=== PATIENT | female | born 1970 | race African-American/Black ===

== ENCOUNTER 2017-09-14 19:08 | Emergency (ER) | payer MEDICAID ==
[~2017-09-14] VITALS: Ht 157.5 cm; Wt 107.5 kg
[2017-09-14 19:36] LABS: CULTURE INDICATED? YES; MICROSCOPIC INDICATED
[2017-09-14 19:43] LABS: MEAN CORPUSCULAR HGB CONC 33.1 g/dL (32.4-35.8); MEAN CORPUSCULAR VOLUME 90.7 fL (80-100); MEAN PLATELET VOLUME 8.5 fL (7.4-10.4); PLATELET COUNT 225 x10^3/uL (130-400); RED BLOOD COUNT 3.93 x10^6/uL (3.82-5.3); RED CELL DISTRIBUTION WIDTH 14.9 % (9.6-15.2)
[2017-09-14 19:55] LABS: ALANINE AMINOTRANSFERASE 24 U/L (12-78); ALBUMIN 3.2 g/dL (3.4-5.0); ANION GAP 6 mmol/L (5-15); CALCIUM 8.6 mg/dL (8.5-10.1); CHLORIDE 109 mmol/L (98-107); CREATININE 0.81 mg/dL (0.55-1.02)
[2017-09-14 19:59] LABS: ALKALINE PHOSPHATASE 155 U/L (45-117); BILIRUBIN,TOTAL 0.1 mg/dL (0.2-1.0); TOTAL PROTEIN 7.2 g/dL (6.4-8.2)
[2017-09-14 20:00] LABS: BASOPHILS # (AUTO) 0.02 x10^3/uL (0-0.1); BASOPHILS % (AUTO) 0 % (0-1); EOSINOPHILS # (AUTO) 0.08 x10^3/uL (0-0.4); EOSINOPHILS % (AUTO) 2 % (1-7); LYMPHOCYTES # (AUTO) 1.72 x10^3/uL (1-3.4); LYMPHOCYTES % (AUTO) 35 % (22-44); MD SCAN; MONOCYTES # (AUTO) 0.46 x10^3/uL (0.2-0.8); MONOCYTES % (AUTO) 9 % (2-9); NEUTROPHILS # (AUTO) 2.65 x10^3/uL (1.8-6.8); NEUTROPHILS % (AUTO) 54 % (42-75)
[2017-09-14] MEDS ORDERED: MAALOX/HYOSCYAMINE/LIDOCAINE 45 ML BTL PO ONE (20:00)
[2017-09-14] MEDS ORDERED: MAALOX/HYOSCYAMINE/LIDOCAINE 45 ML BTL ONE (20:06)
[2017-09-14 21:30] VITALS: BP 126/70
== END 2017-09-14 21:32 | disposition home or self-care (01) ==
LOC: ED 21:20
DX: K29.00 Acute gastritis without bleeding (principal)
CPT/HCPCS: 36415; 76700; 80053; 81001; 83690; 84703; 85025; 87086; 99285

== ENCOUNTER 2018-03-28 09:26 | Emergency (ER) | payer MEDICAID ==
[~2018-03-28] VITALS: Ht 157.5 cm; Wt 109.0 kg
[2018-03-28 09:27] VITALS: BP 148/97
[2018-03-28 11:09] LABS: MEAN CORPUSCULAR HEMOGLOBIN 30.3 pg (27.0-34.8); MEAN CORPUSCULAR HGB CONC 33.1 g/dL (32.4-35.8); MEAN CORPUSCULAR VOLUME 91.5 fL (80-100); MEAN PLATELET VOLUME 8.4 fL (7.4-10.4); PLATELET COUNT 204 x10^3/uL (130-400); RED BLOOD COUNT 3.55 x10^6/uL (3.82-5.3); RED CELL DISTRIBUTION WIDTH 16.6 % (9.6-15.2)
[2018-03-28 11:25] LABS: ALANINE AMINOTRANSFERASE 30 U/L (12-78); ALBUMIN 3.2 g/dL (3.4-5.0); ANION GAP 9 mmol/L (5-15); CALCIUM 7.7 mg/dL (8.5-10.1); CHLORIDE 109 mmol/L (98-107); CREATININE 0.76 mg/dL (0.55-1.02)
[2018-03-28 11:27] LABS: BASOPHILS # (AUTO) 0.05 x10^3/uL (0-0.1); BASOPHILS % (AUTO) 1 % (0-1); EOSINOPHILS # (AUTO) 0.07 x10^3/uL (0-0.4); EOSINOPHILS % (AUTO) 1 % (1-7); LYMPHOCYTES # (AUTO) 1.55 x10^3/uL (1-3.4); LYMPHOCYTES % (AUTO) 30 % (22-44); MD NO; MONOCYTES # (AUTO) 0.45 x10^3/uL (0.2-0.8); MONOCYTES % (AUTO) 9 % (2-9); NEUTROPHILS # (AUTO) 3.06 x10^3/uL (1.8-6.8); NEUTROPHILS % (AUTO) 59 % (42-75)
[2018-03-28 11:29] LABS: ALKALINE PHOSPHATASE 159 U/L (45-117); BILIRUBIN,TOTAL 0.1 mg/dL (0.2-1.0); TOTAL PROTEIN 7.2 g/dL (6.4-8.2)
[2018-03-28] MEDS ORDERED: FUROSEMIDE 40 MG TABLET PO ONE (12:30)
[2018-03-28] MEDS ORDERED: FUROSEMIDE 40 MG TABLET ONE (12:41)
== END 2018-03-28 12:48 | disposition home or self-care (01) ==
LOC: ED 10:00
DX: G89.29 Other chronic pain (principal); M79.662 Pain in left lower leg; M79.661 Pain in right lower leg; M25.572 Pain in left ankle and joints of left foot; M25.571 Pain in right ankle and joints of right foot; M79.672 Pain in left foot; M79.671 Pain in right foot; R60.0 Localized edema
CPT/HCPCS: 36415; 71045; 80053; 83880; 85025; 93005; 93970; 99285

== ENCOUNTER 2018-07-05 21:54 | Inpatient (IN) | payer MEDICAID ==
[~2018-07-05] VITALS: Ht 157.5 cm; Wt 109.8 kg
--- NOTE | 2018-07-05 22:00 | NUR ---
REPORT FROM ELDA OATES. TECH AT BEDSIDE PLACING IV. BP/SPO2/ECG MONITORING IN PLACE. SINUS TACH ON MONITOR.
--- NOTE | 2018-07-05 22:07 | NUR ---
BIB [facility]. C/O cough x 5 days with white sputum. Left lateral chest pain. EKG done. Placed on NIBP, pulse ox and monitor worker. Family at bedside. Will continue to monitor.
--- NOTE | 2018-07-05 23:05 | NUR ---
PT REPORTS L AXIAL CP WITH COUGH X SEVERAL DAYS. INCREASE IN PAIN WITH DEEP BREATHING AND COUGHING. +SUBJECTIVE FEVER AND INTERMITTENT BLE EDEMA. DENIES PRODUCTIVE COUGH/RECENT TRAVEL OR HX OF DVT/PE. RR 30'S, SHALLOW. SPO2 >90% ON RA; PT SPEAKING IN 3-5 WORD SENTENCES. NO TRIPODING OR ACCESSORY MUSCLE USE NOTED. SKIN WARM/DRY. PT AFEBRILE AT PRESENT. PT CALM AND COOPERATIVE WITH CARE. ERP AWARE OF HR/BP. NO IVF AT THIS TIME.
[2018-07-05 23:19] LABS: MEAN CORPUSCULAR HEMOGLOBIN 29.6 pg (27.0-34.8); MEAN CORPUSCULAR HGB CONC 32.3 g/dL (32.4-35.8); MEAN CORPUSCULAR VOLUME 91.6 fL (80-100); MEAN PLATELET VOLUME 9.6 fL (7.4-10.4); PLATELET COUNT 222 x10^3/uL (130-400); RED BLOOD COUNT 3.76 x10^6/uL (3.82-5.3)
[2018-07-05] MEDS ORDERED: CEFTRIAXONE PMX 1GM/50ML 50 ML ONE (23:25)
[2018-07-05] MEDS ORDERED: MORPHINE SULFATE 4 MG/ML, 1ML ONE (23:25)
[2018-07-05] MEDS ORDERED: KETOROLAC 30 MG/1 ML ONE (23:25)
[2018-07-05] MEDS ORDERED: AZITHROMYCIN 500 MG in SODIUM CHLORIDE 0.9% 250 ML IVPB ONE (23:30)
[2018-07-05] MEDS ORDERED: CEFTRIAXONE 1,000 MG in SODIUM CHLORIDE 0.9% 50 ML IVPB ONE (23:30)
[2018-07-05] MEDS ORDERED: SODIUM CHLORIDE FLUSH 10ML SYR IVF ONE (23:30)
[2018-07-05] MEDS ORDERED: SODIUM CHLORIDE 0.9% 1,000ML IVBOLUS ONE (23:30)
[2018-07-05] MEDS ORDERED: KETOROLAC 30 MG/1 ML IVPush ONE (23:30)
[2018-07-05 23:31] LABS: MD YES
[2018-07-05] MEDS: MORPHINE SULFATE 4 MG/ML, 1ML IVPush PRN (23:31)
[2018-07-05 23:33] LABS: BAND#(MANUAL) 1.24 x10^3/uL; BANDS%(MANUAL) 6 % (0-7); EOS#(MANUAL) 0.21 x10^3/uL (0.0-0.4); EOS% (MANUAL) 1 % (1-7); LYMPH#(MANUAL) 2.06 x10^3/uL (1-3.4); LYMPHS% (MANUAL) 10 % (22-44); MONOS#(MANUAL) 0.62 x10^3/uL (0.3-2.7); MONOS% (MANUAL) 3 % (2-9)
[2018-07-05 23:35] LABS: MYELOCYTES# (MANUAL) 0.21 x10^3/uL (0-0); MYELOCYTES% (MANUAL) 1 % (0-0); NRBC % (MANUAL) 2 % (0-1); SEG#(MANUAL) 16.27 x10^3/uL (1.8-6.8); SEGS% (MANUAL) 79 % (42-75)
[2018-07-05 23:37] LABS: <PLATELET ESTIMATE> ADEQUATE; <RBC MORPHOLOGY> NORMAL; LARGE PLATELETS 1+; TOXIC GRAN 1+
--- NOTE | 2018-07-06 00:02 | NUR ---
CT PENDING NORMAL CREATINE.
--- NOTE | 2018-07-06 00:05 | NUR ---
PT REPORTS LITTLE CHANGE IN PAIN WITH MEDICATIONS. PT, HOWEVER, APPEARS MARKEDLY MORE COMFORTABLE. ABX INITIATED. BC X2 DRAWN PRIOR TO ADMIN.
[2018-07-06 00:25] LABS: ALANINE AMINOTRANSFERASE 25 U/L (12-78); ALBUMIN 1.7 g/dL (3.4-5.0); ANION GAP 6 mmol/L (5-15); CALCIUM 7.9 mg/dL (8.5-10.1); CHLORIDE 106 mmol/L (98-107)
[2018-07-06 00:27] LABS: ALKALINE PHOSPHATASE 137 U/L (45-117); BILIRUBIN,TOTAL 0.4 mg/dL (0.2-1.0); TOTAL PROTEIN 6.5 g/dL (6.4-8.2)
[2018-07-06 00:37] LABS: TROPONIN I < 0.015 ng/mL (0.000-0.045)
--- NOTE | 2018-07-06 00:39 | NUR ---
NO S/S OF ABX RXN NOTED. PT TO CT AT THIS TIME. DELAY IN SECOND ABX ADMIN
[2018-07-06] MEDS ORDERED: OMNIPAQUE 350 MG/ML, 100ML BOTTLE ONE (01:04)
--- NOTE | 2018-07-06 01:15 | NUR ---
PT REMAINS HYPOTENSIVE, SBP 90'S. DENIES DIZZINESS/WEAKNESS/NAUSEA. PWD. ERP AWARE. VERBAL ORDER RECEIVED FOR SECOND LITER NS BOLUS. IVF HUNG AT THIS TIME. ABX CONTINUES TO INFUSE. NO S/S OF ABX RXN NOTED. FAMILY AT BEDSIDE. AWAITING ADMIT
[2018-07-06] MEDS ORDERED: POTASSIUM CHLORIDE 10% 40 MEQ/30 ML UDC PO ONE (01:30)
--- NOTE | 2018-07-06 02:11 | NUR ---
BP STABLE ALTHOUGH REMAINS HYPOTENSIVE. PT DENIES CP/SOB/DIZZINESS/WEAKNESS.
[2018-07-06] MEDS ORDERED: CEFTRIAXONE PMX 1GM/50ML 50 ML IV ONE (03:30)
[2018-07-06] MEDS ORDERED: CEFTRIAXONE PMX 2GM/50ML 50 ML IV SCH (03:30)
[2018-07-06] MEDS ORDERED: POTASSIUM CHLORIDE 40 MEQ in SODIUM CHLORIDE 0.9% 500 ML IV ONE (04:00)
[2018-07-06] MEDS ORDERED: LABETALOL 5MG/ML, 20ML IVPush PRN (04:00)
[2018-07-06] MEDS ORDERED: hydrALAzine 20 MG/ML, 1ML IVPush PRN (04:00)
[2018-07-06] MEDS ORDERED: ONDANSETRON ODT 4 MG PO PRN (04:00)
[2018-07-06] MEDS ORDERED: ONDANSETRON 2MG/ML, 2ML IVPush PRN (04:00)
[2018-07-06] MEDS ORDERED: BISACODYL 10 MG SUPP PR PRN (04:00)
[2018-07-06] MEDS ORDERED: DOCUSATE 100 MG CAPSULE PO PRN (04:00)
[2018-07-06] MEDS ORDERED: POLYETHYLENE GLYCOL 17 GM PACKET PO PRN (04:00)
[2018-07-06] MEDS ORDERED: ACETAMINOPHEN 325 MG TABLET PO PRN (04:00)
[2018-07-06] MEDS ORDERED: PROMETHAZINE 25 MG/ML, 1ML IM PRN (04:00)
[2018-07-06 04:17] LABS: FREE T4 (FREE THYROXINE) 1.68 ng/dL (0.76-1.46); THYROID STIMULATING HORMONE 1.22 mIU/L (0.358-3.740)
--- NOTE | 2018-07-06 04:21 | NUR ---
PT MOSTLY SLEEPY, EASILY ARROUSABLE TO VOICE. PT PROVIDED HOSPITAL BED. PT TO STANDING AT BEDSIDE WO DIFFICULTY, DENIES DIZZINESS/WEAKNESS/CP/SOB. SPO2/ECG MONITORING REMAINS IN PLACE. NSR ON MONITOR. SPO2 >90% ON RA. RR 20'S. PT REMAINS WARM/DRY.
[2018-07-06] MEDS ORDERED: ENOXAPARIN 40 MG/0.4 ML ONE (04:43)
[2018-07-06] MEDS: SODIUM CHLORIDE 0.9% 1,000 ML IV SCH ×3 (05:19→23:00)
[2018-07-06] MEDS: ENOXAPARIN 40 MG/0.4 ML SQ SCH (05:20)
[2018-07-06] MEDS: MORPHINE SULFATE 4 MG/ML, 1ML IVPush PRN (05:51)
--- NOTE | 2018-07-06 07:31 | NUR ---
RECEIVED REPORT FROM LUANN SCHROEDER. PT RESTING IN BED AT THIS TIME.
--- NOTE | 2018-07-06 08:30 | NUR ---
DR. BOGDAN SANTIAGO FOR LOW BLOOD PRESSURE 85/55.
--- NOTE | 2018-07-06 08:46 | NUR ---
PAGED DR. ADORNO, DR. MCFADDEN IS NOT ANSWERING PHONE OR CALLING BACK. CALLED AND LEFT A MESSAGE FOR DR. ADORNO AT [phone]
--- NOTE | 2018-07-06 08:50 | NUR ---
DR. ADORNO CALLED BACK. PER VERBAL ORDER OVER THE PHONE. PT TO HAVE 1 LITER NS WIDE OPE, AND 1 LITER AT 250ML/HR X 1 LITER AND THEN MAINTENANCE AT 150ML/HR
--- NOTE | 2018-07-06 09:00 | NUR ---
MEAL TRAY GIVEN TO PT
[2018-07-06] MEDS ORDERED: SODIUM CHLORIDE 0.9% 1,000ML IVBOLUS ONE (09:30)
--- NOTE | 2018-07-06 09:59 | NUR ---
BLOOD PRESSURE 96/50 AFTER 1ST LITER BOLUS INFUSED. 2ND LITER AT 250ML/HR STARTED.
[2018-07-06] MEDS ORDERED: SODIUM CHLORIDE 0.9% 1,000 ML IV ONE (10:00)
--- NOTE | 2018-07-06 10:02 | NUR ---
PT ATE ABOUT 75% MEAL. PT A&OX4.
[2018-07-06] MEDS ORDERED: ERGOCALCIFEROL 50,000 UNIT CAPSULE PO SCH (10:30)
--- NOTE | 2018-07-06 11:04 | NUR ---
PT DIAPHORETIC AND COOL WASH CLOTH GIVEN TO PT
--- NOTE | 2018-07-06 12:02 | NUR ---
REPORT GIVEN TO SUSHIL SCHROEDER.
--- NOTE | 2018-07-06 12:05 | NUR ---
RN AWARE OF HYPOTENSION. WILL TALKE WITH TECHNICIAN AUTOMATIC ON MEDICAL FLOOR IF PATIENT APROPRIATE FOR FLOOR.
[2018-07-06] MEDS: OXYcodone IR 5MG TABLET PO PRN ×2 (13:13→20:34)
[2018-07-06 13:27] VITALS: BP 92/64
[2018-07-06 16:08] VITALS: BP 92/64
[2018-07-06 19:44] LABS: MICROSCOPIC INDICATED
[2018-07-06 20:08] VITALS: BP 108/73
[2018-07-06] MEDS: AZITHROMYCIN 500 MG in SODIUM CHLORIDE 0.9% 250 ML IV SCH (23:05)
[2018-07-06] MEDS: morphine SULFATE 10 MG/ML, 1ML IVPush PRN (23:10)
[2018-07-07 00:52] VITALS: BP 101/68
[2018-07-07] MEDS: CEFTRIAXONE PMX 2GM/50ML 50 ML IV SCH (01:08)
[2018-07-07 05:43] LABS: MEAN CORPUSCULAR VOLUME 91.1 fL (80-100); MEAN PLATELET VOLUME 8.5 fL (7.4-10.4); PLATELET COUNT 225 x10^3/uL (130-400); RED BLOOD COUNT 3.18 x10^6/uL (3.82-5.3); RED CELL DISTRIBUTION WIDTH 16.4 % (9.6-15.2)
[2018-07-07 05:51] LABS: CHLORIDE 112 mmol/L (98-107)
[2018-07-07 05:57] LABS: ALANINE AMINOTRANSFERASE 44 U/L (12-78); ALBUMIN 1.7 g/dL (3.4-5.0); ALKALINE PHOSPHATASE 194 U/L (45-117); ANION GAP 5 mmol/L (5-15); BILIRUBIN,TOTAL 0.2 mg/dL (0.2-1.0); CHOL/HDL RATIO 11.3; CHOLESTEROL, TOTAL 135 mg/dL (140-239); CREATININE 0.52 mg/dL (0.55-1.02); HDL CHOL % 9 % (28-40); HDL CHOLESTEROL (DIRECT) 12 mg/dL (40-60); LDL CHOLESTEROL,CALCULATED 88 mg/dL (54-169); LDL/HDL RATIO 7.3 (0.5-3.0); TOTAL PROTEIN 6.9 g/dL (6.4-8.2); TRIGLYCERIDES 176 mg/dL (50-200); VLDL CHOLESTEROL 35 mg/dL (0-25)
[2018-07-07 06:01] LABS: MD YES
[2018-07-07 06:12] LABS: BANDS%(MANUAL) 1 % (0-7); EOS#(MANUAL) 0.31 x10^3/uL (0.0-0.4); EOS% (MANUAL) 3 % (1-7); LYMPH#(MANUAL) 3.16 x10^3/uL (1-3.4); LYMPHS% (MANUAL) 31 % (22-44); METAMYELOCYTES# (MANUAL) 0.31 x10^3/uL (0-0); METAMYELOCYTES% (MANUAL) 3 % (0-1); MONOS#(MANUAL) 0.71 x10^3/uL (0.3-2.7); MONOS% (MANUAL) 7 % (2-9); MYELOCYTES% (MANUAL) 1 % (0-0); NRBC % (MANUAL) 1 % (0-1); SEG#(MANUAL) 5.51 x10^3/uL (1.8-6.8); SEGS% (MANUAL) 54 % (42-75)
[2018-07-07 06:14] LABS: <PLATELET ESTIMATE> ADEQUATE; POLYCHROMASIA 1+; TOXIC GRAN 1+
[2018-07-07 06:21] LABS: <PLT MORPHOLOGY> NORMAL PLT MORPH
[2018-07-07 07:16] VITALS: BP 104/65
[2018-07-07] MEDS: ENOXAPARIN 40 MG/0.4 ML SQ SCH (08:12)
[2018-07-07] MEDS: OXYcodone IR 5MG TABLET PO PRN ×2 (08:21→20:09)
[2018-07-07] MEDS: GUAIFENESIN ER 600 MG TABLET PO SCH (13:00)
[2018-07-07 14:45] VITALS: BP 110/69
[2018-07-07 18:55] VITALS: BP 105/72
[2018-07-07] MEDS: AZITHROMYCIN 500 MG in SODIUM CHLORIDE 0.9% 250 ML IV SCH (23:25)
[2018-07-08 00:36] VITALS: BP 101/63
[2018-07-08] MEDS: GUAIFENESIN ER 600 MG TABLET PO SCH ×2 (01:29→08:49)
[2018-07-08] MEDS: CEFTRIAXONE PMX 2GM/50ML 50 ML IV SCH (01:33)
[2018-07-08 06:55] VITALS: BP 103/68
[2018-07-08] MEDS: morphine SULFATE 10 MG/ML, 1ML IVPush PRN ×2 (08:49→23:24)
[2018-07-08] MEDS: ENOXAPARIN 40 MG/0.4 ML SQ SCH (08:49)
[2018-07-08 13:52] VITALS: BP 110/72
[2018-07-08] MEDS: OXYcodone IR 5MG TABLET PO PRN ×2 (14:09→20:12)
[2018-07-08 19:25] VITALS: BP 104/71
[2018-07-08] MEDS: AZITHROMYCIN 500 MG in SODIUM CHLORIDE 0.9% 250 ML IV SCH (23:11)
[2018-07-09] MEDS: GUAIFENESIN ER 600 MG TABLET PO SCH ×2 (00:47→09:35)
[2018-07-09] MEDS: CEFTRIAXONE PMX 2GM/50ML 50 ML IV SCH (00:47)
[2018-07-09 01:26] VITALS: BP 106/70
[2018-07-09 06:30] LABS: MEAN CORPUSCULAR HEMOGLOBIN 29.8 pg (27.0-34.8); MEAN CORPUSCULAR HGB CONC 32.8 g/dL (32.4-35.8); MEAN CORPUSCULAR VOLUME 90.8 fL (80-100); MEAN PLATELET VOLUME 8.1 fL (7.4-10.4); PLATELET COUNT 307 x10^3/uL (130-400); RED BLOOD COUNT 3.27 x10^6/uL (3.82-5.3); RED CELL DISTRIBUTION WIDTH 16.5 % (9.6-15.2)
[2018-07-09 06:37] LABS: CHLORIDE 109 mmol/L (98-107)
[2018-07-09 06:43] VITALS: BP 98/64
[2018-07-09 06:49] LABS: ANION GAP 7 mmol/L (5-15); CALCIUM 8.3 mg/dL (8.5-10.1); CREATININE 0.57 mg/dL (0.55-1.02)
[2018-07-09 06:50] LABS: MD YES
[2018-07-09 06:52] LABS: BAND#(MANUAL) 0.16 x10^3/uL; BANDS%(MANUAL) 2 % (0-7); EOS#(MANUAL) 0.08 x10^3/uL (0.0-0.4); EOS% (MANUAL) 1 % (1-7); LYMPHS% (MANUAL) 20 % (22-44); METAMYELOCYTES# (MANUAL) 0.16 x10^3/uL (0-0); METAMYELOCYTES% (MANUAL) 2 % (0-1); MONOS#(MANUAL) 0.48 x10^3/uL (0.3-2.7); MONOS% (MANUAL) 6 % (2-9); NRBC % (MANUAL) 1 % (0-1); SEG#(MANUAL) 5.52 x10^3/uL (1.8-6.8); SEGS% (MANUAL) 69 % (42-75)
[2018-07-09 06:53] LABS: <PLATELET ESTIMATE> ADEQUATE; <PLT MORPHOLOGY> NORMAL PLT MORPH; ANISOCYTOSIS 1+; TOXIC GRAN 1+
[2018-07-09] MEDS: ENOXAPARIN 40 MG/0.4 ML SQ SCH (09:35)
[2018-07-09] MEDS: OXYcodone IR 5MG TABLET PO PRN ×3 (09:43→22:38)
[2018-07-09 12:13] VITALS: BP 95/66
[2018-07-09 20:01] VITALS: BP 99/65
[2018-07-09] MEDS: AZITHROMYCIN 500 MG in SODIUM CHLORIDE 0.9% 250 ML IV SCH (22:31)
[2018-07-10] MEDS: GUAIFENESIN ER 600 MG TABLET PO SCH ×2 (00:48→14:11)
[2018-07-10] MEDS: CEFTRIAXONE PMX 2GM/50ML 50 ML IV SCH (00:48)
[2018-07-10 00:53] VITALS: BP 93/62
[2018-07-10 05:42] LABS: BASOPHILS # (AUTO) 0.03 x10^3/uL (0-0.1); BASOPHILS % (AUTO) 0 % (0-1); EOSINOPHILS % (AUTO) 2 % (1-7); LYMPHOCYTES # (AUTO) 1.64 x10^3/uL (1-3.4); LYMPHOCYTES % (AUTO) 24 % (22-44); MD NO; MEAN CORPUSCULAR HEMOGLOBIN 30.5 pg (27.0-34.8); MEAN CORPUSCULAR HGB CONC 33.5 g/dL (32.4-35.8); MEAN CORPUSCULAR VOLUME 91.1 fL (80-100); MEAN PLATELET VOLUME 7.9 fL (7.4-10.4); MONOCYTES # (AUTO) 0.47 x10^3/uL (0.2-0.8); MONOCYTES % (AUTO) 7 % (2-9); NEUTROPHILS # (AUTO) 4.76 x10^3/uL (1.8-6.8); NEUTROPHILS % (AUTO) 68 % (42-75); PLATELET COUNT 344 x10^3/uL (130-400); RED BLOOD COUNT 3.07 x10^6/uL (3.82-5.3); RED CELL DISTRIBUTION WIDTH 16.5 % (9.6-15.2)
[2018-07-10 05:47] LABS: CHLORIDE 109 mmol/L (98-107)
[2018-07-10 05:51] LABS: ANION GAP 6 mmol/L (5-15); CALCIUM 8.5 mg/dL (8.5-10.1); CREATININE 0.61 mg/dL (0.55-1.02)
[2018-07-10 07:30] VITALS: BP 92/60
[2018-07-10] MEDS: OXYcodone IR 5MG TABLET PO PRN ×2 (08:08→14:11)
[2018-07-10] MEDS: ENOXAPARIN 40 MG/0.4 ML SQ SCH (08:08)
[2018-07-10] MEDS ORDERED: AZIT500T5 PO (11:16)
[2018-07-10] MEDS ORDERED: CEFD300C37 PO (11:16)
[2018-07-10 13:45] VITALS: BP 100/67
== END 2018-07-10 14:27 | disposition home or self-care (01) | DRG 871 ==
LOC: ED 07-06 00:13 → EDIP 07-06 01:16 → 3NE 07-06 12:28
PROVIDERS: ADMIT Internal Medicine; ATTEND Internal Medicine
DX: A41.9 Sepsis, unspecified organism (principal); E43 Unspecified severe protein-calorie malnutrition; J15.9 Unspecified bacterial pneumonia; J96.91 Respiratory failure, unspecified with hypoxia; Z68.41 Body mass index [BMI] 40.0-44.9, adult; D64.9 Anemia, unspecified; Z88.0 Allergy status to penicillin; E55.9 Vitamin D deficiency, unspecified; E87.6 Hypokalemia; F17.200 Nicotine dependence, unspecified, uncomplicated; Z83.3 Family history of diabetes mellitus
CPT/HCPCS: 36415; 71045; 71046; 71275; 80048; 80053; 80061; 81001; 82306; 82607; 82728; 83036; 83540; 83550; 83605; 83735; 83880; 84439; 84443; 84466; 84484; 85025; 87040; 87070; 87205; 87806; 93005; 99285; G0378; J0456; J0696; J1650; J1885; J3480; Q9967; G0475; J2270; J7030; J7040; J7050

== ENCOUNTER 2019-08-18 23:55 | Emergency (ER) | payer MEDICAID ==
[~2019-08-18] VITALS: Ht 157.5 cm; Wt 111.0 kg
[~2019-08-18 23:55] MED LIST: AZIT500T10 PO; CEFD300C37 PO
--- NOTE | 2019-08-19 00:16 | NUR ---
Pt presents to room with bilateral lower leg edema and redness to her left lower leg. Pt states she takes Lasix PRN for the edema and also states the current edema is baseline for her. Pt reports noticing the redness to her left lower leg yesterday. Pt describes the redness and itchy and painful. Pt denies fever with symptoms.
[2019-08-19] MEDS ORDERED: SODIUM CHLORIDE FLUSH 10ML SYR IVF ONE (00:30)
[2019-08-19] MEDS ORDERED: ONDANSETRON 2MG/ML, 2ML ONE (00:52)
[2019-08-19] MEDS ORDERED: MORPHINE SULFATE 4 MG/ML, 1ML ONE (00:53)
[2019-08-19 00:56] LABS: BASOPHILS % (AUTO) 0 % (0-1); EOSINOPHILS # (AUTO) 0.06 x10^3/uL (0-0.4); EOSINOPHILS % (AUTO) 1 % (1-7); LYMPHOCYTES # (AUTO) 1.25 x10^3/uL (1-3.4); LYMPHOCYTES % (AUTO) 26 % (22-44); MD NO; MEAN CORPUSCULAR HEMOGLOBIN 28.5 pg (27.0-34.8); MEAN CORPUSCULAR HGB CONC 32.3 g/dL (32.4-35.8); MEAN CORPUSCULAR VOLUME 88.3 fL (80-100); MEAN PLATELET VOLUME 8.9 fL (7.4-10.4); MONOCYTES # (AUTO) 0.26 x10^3/uL (0.2-0.8); MONOCYTES % (AUTO) 5 % (2-9); NEUTROPHILS % (AUTO) 68 % (42-75); PLATELET COUNT 209 x10^3/uL (130-400); RED BLOOD COUNT 3.63 x10^6/uL (3.82-5.3); RED CELL DISTRIBUTION WIDTH 18.2 % (9.6-15.2)
[2019-08-19] MEDS ORDERED: ONDANSETRON 2MG/ML, 2ML IVPush ONE (01:00)
[2019-08-19] MEDS ORDERED: MORPHINE SULFATE 4 MG/ML, 1ML IVPush PRN (01:00)
--- NOTE | 2019-08-19 01:07 | NUR ---
PATIENT GIVEN MEDICATIONS, VITAL SIGNS STABLE. NO NOTED ACUTE DISTRESS. PATIENT DENIES ANY FURTHER NEEDS AT THIS TIME.
[2019-08-19 01:09] LABS: ALANINE AMINOTRANSFERASE 20 U/L (12-78); ALBUMIN 3.4 g/dL (3.4-5.0); ANION GAP 6 mmol/L (5-15); CALCIUM 8.5 mg/dL (8.5-10.1); CHLORIDE 108 mmol/L (98-107); CREATININE 0.92 mg/dL (0.55-1.02)
[2019-08-19 01:13] LABS: ALKALINE PHOSPHATASE 164 U/L (45-117); BILIRUBIN,TOTAL 0.3 mg/dL (0.2-1.0); TOTAL PROTEIN 7.7 g/dL (6.4-8.2)
--- NOTE | 2019-08-19 01:28 | NUR ---
Pt reports her pain has improved to 7/10 from 8/10 after meds. Pt placed on 2 lpm O2 for SpO2 readings as low as 87% at room air while sleeping.
[2019-08-19] MEDS ORDERED: FUROSEMIDE 40 MG/4 ML IV ONE (02:00)
[2019-08-19] MEDS ORDERED: CLINDAMYCIN 300 MG CAPSULE PO ONE (02:00)
[2019-08-19] MEDS ORDERED: FUROSEMIDE 40 MG/4 ML ONE (02:07)
[2019-08-19] MEDS ORDERED: CLINDAMYCIN 300 MG CAPSULE ONE (02:08)
[2019-08-19 03:16] VITALS: BP 136/85
== END 2019-08-19 03:18 | disposition home or self-care (01) ==
LOC: ED 08-19 00:57
DX: L03.116 Cellulitis of left lower limb (principal); R60.0 Localized edema
CPT/HCPCS: 36415; 80053; 83880; 85025; 93005; 96374; 96375; 99284; J1940; J2270; J2405

== ENCOUNTER 2020-08-27 11:03 | Emergency (ER) | payer MEDICAID ==
[~2020-08-27] VITALS: Ht 157.5 cm; Wt 112.1 kg
[2020-08-27 12:31] LABS: CALCIUM 8.5 mg/dL (8.5-10.1); CHLORIDE 110 mmol/L (98-107)
[2020-08-27 12:33] LABS: BASOPHILS % (AUTO) 1 % (0-1); EOSINOPHILS % (AUTO) 1 % (1-7); LYMPHOCYTES % (AUTO) 30 % (22-44); MD NO; MEAN CORPUSCULAR HEMOGLOBIN 27.2 pg (27.0-34.8); MEAN CORPUSCULAR HGB CONC 31.8 g/dL (32.4-35.8); MEAN PLATELET VOLUME 8.7 fL (7.4-10.4); MONOCYTES % (AUTO) 9 % (2-9); NEUTROPHILS % (AUTO) 59 % (42-75); PLATELET COUNT 251 x10^3/uL (130-400); RED BLOOD COUNT 3.52 x10^6/uL (3.82-5.3); RED CELL DISTRIBUTION WIDTH 19.8 % (9.6-15.2)
[2020-08-27 12:34] LABS: ALBUMIN 3.5 g/dL (3.4-5.0); ANION GAP 8 mmol/L (5-15); CREATININE 0.78 mg/dL (0.55-1.02)
[2020-08-27 13:06] VITALS: BP 145/94
== END 2020-08-27 13:14 | disposition home or self-care (01) ==
LOC: ED 12:44
DX: I83.11 Varicose veins of right lower extremity with inflammation (principal); L03.115 Cellulitis of right lower limb; R60.0 Localized edema; M79.662 Pain in left lower leg; M79.661 Pain in right lower leg; Z91.19 Patient's noncompliance with other medical treatment and regimen
CPT/HCPCS: 36415; 80048; 82040; 85025; 93970; 99284